=== PATIENT | male | born 1960 | race Caucasian/White ===

== ENCOUNTER 2019-05-25 09:49 | Emergency (ER) | payer MEDICARE ==
[~2019-05-25] VITALS: Ht 170.2 cm; Wt 100.0 kg
[~2019-05-25 09:49] MED LIST: AMLO10TA13 PO; HYDR25TA4 PO; IRON PO; MV-M1TAB22 PO; OXYC5CAP19 PO; SIMV-42 PO
[2019-05-25 10:07] VITALS: BP 171/93
== END 2019-05-25 12:08 | disposition home or self-care (01) ==
LOC: ER 09:50
DX: S46.822A Laceration of other muscles, fascia and tendons at shoulder and upper arm level, left arm, initial encounter (principal); M71.522 Other bursitis, not elsewhere classified, left elbow; E78.00 Pure hypercholesterolemia, unspecified; I10 Essential (primary) hypertension; F12.90 Cannabis use, unspecified, uncomplicated; Z79.899 Other long term (current) drug therapy; X58.XXXA Exposure to other specified factors, initial encounter; Y93.89 Activity, other specified; Y92.89 Other specified places as the place of occurrence of the external cause; Y99.8 Other external cause status
CPT/HCPCS: 73080; 99283

== ENCOUNTER 2021-08-07 18:16 | Emergency (ER) | payer MEDICARE, MEDICAID ==
[~2021-08-07] VITALS: Ht 167.6 cm; Wt 82.7 kg
[~2021-08-07 18:16] MED LIST changes: -MV-M1TAB22 PO; +MV-M1TAB77 PO
[2021-08-07 20:03] LABS: BASOPHILS # (AUTO) 0.1 X10'3 (0-0.2); BASOPHILS % (AUTO) 0.5 % (0-1); EOSINOPHILS # (AUTO) 0.4 X10'3 (0-0.9); EOSINOPHILS % (AUTO) 2.1 % (0-6); HEMATOCRIT 32.7 % (42.0-52.0); HEMOGLOBIN 10.9 g/dl (14.0-17.9); LYMPHOCYTES # (AUTO) 2.1 X10'3 (1.1-4.8); LYMPHOCYTES % (AUTO) 11.5 % (21-51); MEAN CORPUSCULAR HEMOGLOBIN 36.2 PG (27.0-31.0); MEAN CORPUSCULAR HGB CONC 33.5 g/dL (33.0-36.5); MEAN CORPUSCULAR VOLUME 108.1 FL (78-98); MEAN PLATELET VOLUME 9.4 FL (7.4-10.4); MONOCYTES % (AUTO) 5.7 % (2-12); NEUTROPHILS # (AUTO) 14.5 X10'3 (1.8-7.7); NEUTROPHILS % (AUTO) 80.2 % (42-75); PLATELET COUNT 298 X10'3 (140-440); RED BLOOD COUNT 3.02 X10'6 (4.70-6.10); RED CELL DISTRIBUTION WIDTH 17.1 % (11.5-14.5)
[2021-08-07 20:17] LABS: ALANINE AMINOTRANSFERASE 36 U/L (12-78); ALBUMIN 1.7 G/DL (3.4-5.0); ALBUMIN/GLOBULIN RATIO 0.4 (1.1-1.5); ALKALINE PHOSPHATASE 267 IU/L (46-116); ANION GAP 12 (8-16); ASPARTATE AMINO TRANSFERASE 67 U/L (10-37); BILIRUBIN,TOTAL 2.4 MG/DL (0.1-1.0); BLOOD UREA NITROGEN 14 MG/DL (7-18); BUN/CREATININE RATIO 17.1 (5.4-32.0); CALCIUM 7.7 MG/DL (8.5-10.1); CHLORIDE 99 MMOL/L (99-107); CREATININE 0.82 MG/DL (0.60-1.10); GLUCOSE 120 MG/DL (70-104); POTASSIUM 3.5 MMOL/L (3.5-5.1); SODIUM 135 MMOL/L (135-145); TOTAL CARBON DIOXIDE 23.9 MMOL/L (24-32); TOTAL PROTEIN 6.4 G/DL (6.4-8.2); eGFR > 90 ML/MIN
--- NOTE | 2021-08-07 20:36 | NUR ---
reported WBC with Aponte, pt's PA
[2021-08-07] MEDS ORDERED: cefTRIAXone 1g/NS 100ml IVPB 100 ML IV ONE (21:15)
[2021-08-07] MEDS ORDERED: normal saline 1000ML IV soln IVB ONE (21:15)
[2021-08-07] MEDS ORDERED: LIDOcaine 1% 30ml preserv. free vial IJ STA ×2 (21:53→21:57)
--- NOTE | 2021-08-07 22:25 | NUR ---
DR PATEL PERFOMED PROCEDURE IN PT'S ROOM. IV PLACED. ORDERS CHANGED. NO IV FLUIDS. CONTINUE W/ ROCEPHIN AFTER LACTIC, PROCALCITONIN, AND BLOOD CULTURES ARE TAKEN.
[2021-08-07 23:34] LABS: CLARITY,URINE CLEAR (Clear); GLUCOSE, URINE NEGATIVE (Neg); KETONES,URINE NEGATIVE (Neg); LEUKOCYTE ESTERASE ,URINE NEGATIVE (Neg); NITRITES, URINE NEGATIVE (Neg); OCCULT BLOOD,URINE NEGATIVE (Neg); PH,URINE 5.5 (4.8-8.0); PROTEIN,URINE NEGATIVE (Neg); UROBILINOGEN,URINE 0.2 E.U/dL (0.2-1.0)
[2021-08-07 23:35] LABS: COLOR,URINE DARK YELLOW (Yellow); UA COLLECTION TYPE URINAL
[2021-08-07 23:48] VITALS: BP 106/68
== END 2021-08-08 01:33 | disposition home or self-care (01) ==
LOC: ER 18:17
DX: Z51.5 Encounter for palliative care (principal); D72.829 Elevated white blood cell count, unspecified; R11.0 Nausea; R14.0 Abdominal distension (gaseous); E78.00 Pure hypercholesterolemia, unspecified; I10 Essential (primary) hypertension; F12.90 Cannabis use, unspecified, uncomplicated; Z72.89 Other problems related to lifestyle; Z79.899 Other long term (current) drug therapy
CPT/HCPCS: 36415; 49083; 71045; 80053; 81003; 83605; 84145; 85025; 87040; 96365; 96366; 99285; J0696

== ENCOUNTER 2021-08-16 07:21 | Day surgery (SDC) | payer MEDICARE, MEDICAID ==
[~2021-08-16] VITALS: Ht 167.6 cm; Wt 81.6 kg
[2021-08-16] VITALS (9 sets, daily range): BP systolic 104–127; BP diastolic 63–87
[~2021-08-16 07:21] MED LIST changes: +LIDOcaine 1%/PF 5ML 10 MG/ML VIAL IJ ONE
[2021-08-16] MEDS ORDERED: albumin 25% 100mL bottle x 1 IV PRN (07:45)
[2021-08-16] MEDS ORDERED: TRAM50TA2 PO ×2 (08:59)
[2021-08-16] MEDS ORDERED: ASPI-611 PO (08:59)
[2021-08-16] MEDS ORDERED: SPIR50TA PO (08:59)
[2021-08-16] MEDS ORDERED: OMEP20CA15 PO (08:59)
[2021-08-16] MEDS ORDERED: CYAN100087 PO (08:59)
[2021-08-16] MEDS ORDERED: LACT10SO3 PO (08:59)
[2021-08-16] MEDS ORDERED: FURO40TA4 PO (08:59)
[2021-08-16] MEDS ORDERED: POTA10CA44 PO (08:59)
[2021-08-16] MEDS ORDERED: THIA50TA10 PO (08:59)
[2021-08-16] MEDS ORDERED: ACET-1008 PO (08:59)
[2021-08-16] MEDS ORDERED: PSYL0.4C2 PO (08:59)
[2021-08-16] MEDS ORDERED: MULT-381 PO (08:59)
== END 2021-08-16 11:16 | disposition home or self-care (01) ==
LOC: SSTAY O 07:21
PROVIDERS: ATTEND Radiology Vascular & Interventional Radiology
DX: K70.11 Alcoholic hepatitis with ascites (principal); K21.9 Gastro-esophageal reflux disease without esophagitis; K76.6 Portal hypertension; Z79.899 Other long term (current) drug therapy; Z79.82 Long term (current) use of aspirin
CPT/HCPCS: 49083; P9047

== ENCOUNTER 2021-08-23 06:15 | Day surgery (SDC) | payer MEDICARE, MEDICAID ==
[~2021-08-23] VITALS: Ht 167.6 cm; Wt 80.6 kg
[2021-08-23] VITALS (9 sets, daily range): BP systolic 100–123; BP diastolic 57–74
[~2021-08-23 06:15] MED LIST changes: +ACET-1008 PO; -AMLO10TA13 PO; +ASPI-611 PO; +CYAN100087 PO; +FURO40TA4 PO; -HYDR25TA4 PO; -IRON PO; +LACT10SO3 PO; -LIDOcaine 1%/PF 5ML 10 MG/ML VIAL IJ ONE; +MULT-381 PO; -MV-M1TAB77 PO; +OMEP20CA15 PO; -OXYC5CAP19 PO; +POTA10CA44 PO; +PSYL0.4C2 PO; -SIMV-42 PO; +SPIR50TA PO; +THIA50TA10 PO; +TRAM50TA2 PO
[2021-08-23] MEDS ORDERED: albumin 25% 100mL bottle x 1 IV PRN (06:30)
[2021-08-23] MEDS ORDERED: LIDOcaine 1%/PF 5ML 10 MG/ML VIAL SQ ONE (07:15)
== END 2021-08-23 10:34 | disposition home or self-care (01) ==
LOC: SSTAY O 06:15
PROVIDERS: ATTEND Radiology Diagnostic Radiology
DX: K70.31 Alcoholic cirrhosis of liver with ascites (principal); K76.6 Portal hypertension; K21.9 Gastro-esophageal reflux disease without esophagitis; Z79.899 Other long term (current) drug therapy
CPT/HCPCS: 49083; J3490; P9047

== ENCOUNTER 2021-11-04 08:16 | Day surgery (SDC) | payer MEDICARE ==
[2021-11-04] VITALS (7 sets, daily range): BP systolic 101–120; BP diastolic 63–79
[~2021-11-04] VITALS: Ht 167.6 cm; Wt 77.0 kg
[2021-11-04] MEDS ORDERED: albumin 25% 100mL bottle x 1 IV PRN (08:40)
[2021-11-04] MEDS ORDERED: IBUP-1985 PO (08:41)
[2021-11-04] MEDS ORDERED: FURO80TA3 PO (08:41)
[2021-11-04] MEDS ORDERED: LIDOcaine 1% 30ml preserv. free vial IJ STA (08:47)
--- NOTE | 2021-11-04 09:35 | NUR ---
Received report from Gomez CASTRO. Assumed pt care. Patient resting comfortably, VSS, no needs at this time.
== END 2021-11-04 10:20 | disposition home or self-care (01) ==
LOC: SSTAY O 08:16
PROVIDERS: ATTEND Radiology Diagnostic Radiology
DX: K70.11 Alcoholic hepatitis with ascites (principal); K70.31 Alcoholic cirrhosis of liver with ascites; K76.6 Portal hypertension; K21.9 Gastro-esophageal reflux disease without esophagitis; Z79.82 Long term (current) use of aspirin; Z79.899 Other long term (current) drug therapy
CPT/HCPCS: 49083; J3490; P9047; Z7610; A6258

== ENCOUNTER 2021-12-31 10:15 | Day surgery (SDC) | payer MEDICARE ==
[2021-12-31] VITALS (12 sets, daily range): BP systolic 83–103; BP diastolic 54–88
[~2021-12-31] VITALS: Ht 167.6 cm; Wt 78.5 kg
[~2021-12-31 10:15] MED LIST changes: -ACET-1008 PO; -CYAN100087 PO; +ERGO400C PO; -FURO40TA4 PO; +FURO80TA3 PO; +IBUP-1985 PO; -OMEP20CA15 PO; -POTA10CA44 PO
[2021-12-31] MEDS ORDERED: LIDOcaine 1%/PF 5ML 10 MG/ML VIAL SQ ONE (10:40)
[2021-12-31] MEDS ORDERED: normal saline 1000ml 1,000 ML IV ONE (11:30)
--- NOTE | 2021-12-31 11:30 | NUR ---
Patient's BP remains in 80's systolic. Per Supriya RETANA give 2nd bottle of albumin and 500 mL bolus of normal saline.
[2021-12-31] MEDS: albumin 25% 100mL bottle x 1 IV PRN ×2 (12:03→12:04)
== END 2021-12-31 13:55 | disposition home or self-care (01) ==
LOC: SSTAY O 10:15
PROVIDERS: ATTEND Radiology Diagnostic Radiology
DX: K70.11 Alcoholic hepatitis with ascites (principal); K76.6 Portal hypertension; Z79.899 Other long term (current) drug therapy; Z79.82 Long term (current) use of aspirin; K21.9 Gastro-esophageal reflux disease without esophagitis; Z98.890 Other specified postprocedural states
CPT/HCPCS: 49083; J3490; J7030; P9047; A6258; A6449

== ENCOUNTER 2022-01-27 06:04 | Day surgery (SDC) | payer MEDICARE ==
[~2022-01-27] VITALS: Ht 167.6 cm; Wt 75.9 kg
[2022-01-27] VITALS (13 sets, daily range): BP systolic 93–126; BP diastolic 50–77
[2022-01-27] MEDS ORDERED: LIDOcaine 1%/PF 5ML 10 MG/ML VIAL SQ ONE (06:15)
[2022-01-27] MEDS ORDERED: PROP20TA6 (06:27)
[2022-01-27] MEDS ORDERED: FURO40TA4 PO (06:27)
[2022-01-27] MEDS ORDERED: SPIR100T5 PO (06:27)
[2022-01-27] MEDS ORDERED: FOLI1TAB27 PO (06:27)
[2022-01-27] MEDS ORDERED: OMEP40CA21 PO (06:27)
[2022-01-27] MEDS ORDERED: CHOL100046 PO (06:27)
[2022-01-27] MEDS: albumin 25% 100mL bottle x 1 IV PRN ×3 (08:39→10:30)
== END 2022-01-27 11:30 | disposition home or self-care (01) ==
LOC: SSTAY O 06:04
PROVIDERS: ATTEND Radiology Diagnostic Radiology
DX: K70.11 Alcoholic hepatitis with ascites (principal); K70.31 Alcoholic cirrhosis of liver with ascites; K76.6 Portal hypertension; K21.9 Gastro-esophageal reflux disease without esophagitis; Z72.89 Other problems related to lifestyle; Z79.899 Other long term (current) drug therapy
CPT/HCPCS: 49083; J3490; P9047; A6258; A6449

== ENCOUNTER 2022-02-27 07:07 | Day surgery (SDC) | payer MEDICARE ==
[~2022-02-27] VITALS: Ht 167.6 cm; Wt 73.5 kg
[2022-02-27] VITALS (17 sets, daily range): BP systolic 82–120; BP diastolic 54–71
[~2022-02-27 07:07] MED LIST changes: +CHOL100046 PO; -ERGO400C PO; +FOLI1TAB27 PO; +FURO40TA4 PO; -FURO80TA3 PO; +OMEP40CA21 PO; +PROP20TA6; +SPIR100T5 PO; -SPIR50TA PO; -THIA50TA10 PO; -TRAM50TA2 PO
[2022-02-27] MEDS ORDERED: PROP10TA10 PO (07:20)
[2022-02-27] MEDS: albumin 25% 100mL bottle x 1 IV PRN ×4 (08:33→11:27)
== END 2022-02-27 11:55 | disposition home or self-care (01) ==
LOC: SSTAY O 07:07
PROVIDERS: ATTEND Radiology Vascular & Interventional Radiology
DX: K70.11 Alcoholic hepatitis with ascites (principal); K21.9 Gastro-esophageal reflux disease without esophagitis; K76.6 Portal hypertension; Z79.899 Other long term (current) drug therapy
CPT/HCPCS: 49083; P9047; A6258; C1729

== ENCOUNTER 2022-05-23 05:52 | Day surgery (SDC) | payer MEDICARE, MEDICAID ==
[~2022-05-23] VITALS: Ht 167.6 cm; Wt 71.7 kg
[2022-05-23] VITALS (10 sets, daily range): BP systolic 102–114; BP diastolic 67–76
[~2022-05-23 05:52] MED LIST changes: -IBUP-1985 PO; +PROP10TA10 PO; -PROP20TA6
[2022-05-23] MEDS ORDERED: LIDOcaine 1% 30ml preserv. free vial SQ STA (05:57)
[2022-05-23] MEDS: albumin 25% 100mL bottle x 1 IV PRN ×2 (08:36→09:19)
== END 2022-05-23 10:33 | disposition home or self-care (01) ==
LOC: SSTAY O 05:52
PROVIDERS: ATTEND Radiology Diagnostic Radiology
DX: K70.11 Alcoholic hepatitis with ascites (principal); K70.31 Alcoholic cirrhosis of liver with ascites; K76.6 Portal hypertension; K21.9 Gastro-esophageal reflux disease without esophagitis; Z79.82 Long term (current) use of aspirin; Z79.899 Other long term (current) drug therapy; Z72.89 Other problems related to lifestyle
CPT/HCPCS: 49083; J3490; P9047; A6258; A6449